=== PATIENT | female | born 1935 | race Caucasian/White ===

== ENCOUNTER 2020-09-18 16:56 | Emergency (ER) | payer OTHER, MEDICARE ==
[2020-09-18 17:29] VITALS: TEMP 98.4; BMI 30.1
[2020-09-18] MEDS ORDERED: BAMLANIVIMAB 700 MG in SODIUM CHLORIDE 180 ML IVPB ONE (19:04)
[2020-09-18 21:50] VITALS: BP 174/67; PULSE 62
== END 2020-09-18 22:28 | disposition home or self-care (01) ==
LOC: JER 16:56
PROC: 3E033NZ Introduction of Analgesics, Hypnotics, Sedatives into Peripheral Vein, Percutaneous Approach (ICD-10-PCS; principal; 2020-09-18)
DX: U07.1 COVID-19 (principal)
CPT/HCPCS: 99284-25; M0239; Q0239

== ENCOUNTER 2020-10-02 14:00 | Inpatient (IN) | payer OTHER, MEDICARE ==
[2020-10-02] MEDS ORDERED: DEXAMETHASONE SOD PHOSPHATE 4 MG/1 ML VIAL IVPUSH ONE (15:05)
[2020-10-02] MEDS ORDERED: ACETAMINOPHEN 1000 MG/100 ML VIAL (NON FORMULARY) IVPB ONE (15:05)
[2020-10-02 15:51] LABS: VENOUS BASE EXCESS -1.1 mmol/L (-2-2); VENOUS O2 SATURATION 55.7 % (70-80); VENOUS PCO2 33.2 mmHg (38-52); VENOUS PH 7.446 (7.310-7.410)
[2020-10-02] MEDS ORDERED: DEXAMETHASONE SOD PHOSPHATE 10 MG/1 ML VIAL ONE (15:59)
[2020-10-02] MEDS ORDERED: ACETAMINOPHEN INJECTION 100 ML IVPB ONE (15:59)
[2020-10-02 16:07] LABS: BASO % 0.2 % (0-2.0); EOS % 0.1 % (0-4.5); HEMATOCRIT 32.8 % (32.4-45.2); HEMOGLOBIN 10.8 GM/dL (10.7-15.3); LYMPH % 3.6 % (8-40); MCH 30.9 pg (25.7-33.7); MEAN CELL VOLUME 93.7 fl (80-96); MEAN PLT VOLUME 9.3 fl (7.5-11.1); MONO % 5.6 % (3.8-10.2); NEUT % 90.5 % (42.8-82.8); PLATELET COUNT 277 K/MM3 (134-434); RDW 13.7 % (11.6-15.6); WHITE BLOOD COUNT 11.8 K/mm3 (4.0-10.0)
[2020-10-02 16:14] LABS: INR 2.17 (0.83-1.09); PROTHROMBIN TIME (PATIENT) 26.1 SEC (9.7-13.0)
[2020-10-02 16:16] LABS: ACTIVATED PTT 32.1 SECONDS (25.2-36.5)
[2020-10-02 16:34] LABS: POTASSIUM 4.7 mmol/L (3.5-5.1)
[2020-10-02 16:36] LABS: ALBUMIN 2.5 g/dl (3.4-5.0); CALCIUM 8.4 mg/dL (8.5-10.1)
[2020-10-02 16:37] LABS: BLOOD UREA NITROGEN 28.4 mg/dL (7-18)
[2020-10-02 16:39] LABS: BILIRUBIN,DIRECT 0.3 mg/dL (0.0-0.2)
[2020-10-02 16:40] LABS: CREATININE 0.9 mg/dL (0.55-1.3)
[2020-10-02 16:41] LABS: TOT PROT 6.8 g/dl (6.4-8.2)
[2020-10-02] MEDS ORDERED: dilTIAZem HCL 125 MG/25 ML - 25 ML VIAL ONE (17:11)
[2020-10-02] MEDS ORDERED: dilTIAZem HCL 50 MG/10 ML - 10 ML VIAL IVPUSH ONE (17:53)
[2020-10-02] MEDS ORDERED: dilTIAZem HCL 30 MG TABLET PO ONE (18:14)
[2020-10-02] MEDS ORDERED: dilTIAZem HCL 30 MG TABLET ONE (18:23)
[2020-10-02] MEDS ORDERED: ACETAMINOPHEN 325 MG TABLET (FP) PO PRN (23:38)
[2020-10-02] MEDS ORDERED: AZITHROMYCIN IVPB 500 MG/250 ML BAG IVPB ONE (23:40)
[2020-10-03] MEDS ORDERED: AZITHROMYCIN IVPB 500 MG/250 ML BAG IVPB ONE (01:34)
[2020-10-03] MEDS ORDERED: APIXABAN 5 MG TABLET ONE (01:34)
[2020-10-03] MEDS: APIXABAN 5 MG TABLET PO SCH ×2 (01:37→10:51)
[2020-10-03] MEDS: FUROSEMIDE 20 MG TABLET (FP) PO SCH ×2 (06:25→14:50)
[2020-10-03] MEDS: METHIMAZOLE 10 MG TABLET (FP) PO SCH ×2 (06:25→14:50)
[2020-10-03 07:44] LABS: BASO % 0.3 % (0-2.0); HEMATOCRIT 30.4 % (32.4-45.2); HEMOGLOBIN 10.4 GM/dL (10.7-15.3); LYMPH % 3.9 % (8-40); MCH 31.8 pg (25.7-33.7); MCHC 34.2 g/dl (32.0-36.0); MEAN PLT VOLUME 9.2 fl (7.5-11.1); MONO % 2.9 % (3.8-10.2); NEUT % 92.9 % (42.8-82.8); PLATELET COUNT 278 K/MM3 (134-434); RBC 3.27 M/mm3 (3.60-5.2); RDW 13.7 % (11.6-15.6); WHITE BLOOD COUNT 11.1 K/mm3 (4.0-10.0)
[2020-10-03 08:10] LABS: POTASSIUM 5.3 mmol/L (3.5-5.1)
[2020-10-03 08:16] LABS: ALBUMIN 2.2 g/dl (3.4-5.0); BLOOD UREA NITROGEN 32.6 mg/dL (7-18); CALCIUM 8.4 mg/dL (8.5-10.1)
[2020-10-03 08:19] LABS: CREATININE 0.8 mg/dL (0.55-1.3)
[2020-10-03 08:20] LABS: BILIRUBIN,TOTAL 1.1 mg/dL (0.2-1); TOT PROT 6.3 g/dl (6.4-8.2)
[2020-10-03] MEDS: METOPROLOL TARTRATE 50 MG TABLET (FP) PO SCH ×2 (08:48→10:24)
[2020-10-03] MEDS ORDERED: DEXAMETHASONE SOD PHOSPHATE 4 MG/1 ML VIAL IVPUSH SCH ×2 (10:00)
[2020-10-03] MEDS ORDERED: CHOLECALCIFEROL (VIT D3) 1,000 UNIT (25 MCG) TABLET PO SCH (10:00)
[2020-10-03] MEDS ORDERED: POTASSIUM CHLORIDE TABS 10 MEQ TABLET.ER (FP) PO SCH (10:00)
[2020-10-03 10:33] LABS: ANISOCYTOSIS 0; HELMET CELLS 0; HOWELL-JOLLY BODIES 0; MACROCYTOSIS 0; OVALOCYTE 0; PLATELET ESTIMATE NORMAL; ROULEAU 0; SICKELED CELLS 0; TARGET CELLS 0; TEAR DROP CELLS 0; TOXIC GRANULATION 0
[2020-10-03] MEDS ORDERED: dilTIAZem HCL 25 MG/5 ML - 5 ML VIAL IVPUSH PRN (10:45)
[2020-10-03] MEDS: ASCORBIC ACID 500 MG TABLET (FP) PO SCH (10:51)
[2020-10-03] MEDS: ZINC SULFATE 220 MG CAPSULE (FP) PO SCH (10:52)
[2020-10-03] MEDS ORDERED: TOCILIZUMAB (ACTEMRA) 200 MG/10 ML VIAL IVPB ONE (11:35)
[2020-10-03] MEDS: dilTIAZem HCL 30 MG TABLET PO SCH ×2 (11:37→17:40)
[2020-10-03 12:06] LABS: MAGNESIUM 2.9 mg/dL (1.8-2.4)
[2020-10-03] MEDS ORDERED: SODIUM CHLORIDE IVPB ONE (12:15)
[2020-10-03] MEDS ORDERED: TOCILIZUMAB IVPB ONE (12:15)
[2020-10-03] MEDS ORDERED: REMDESIVIR 200 MG in SODIUM CHLORIDE 210 ML IVPB ONE (14:00)
[2020-10-03] MEDS: BUDESONIDE/FORMETEROL FUMARATE 160/4.5 mcg INHALER IH SCH (14:49)
[2020-10-03] MEDS ORDERED: MORPHINE SULFATE 2 MG/ML VIAL IM ONE (20:58)
[2020-10-03] MEDS ORDERED: MORPHINE SULFATE 2 MG/ML VIAL ONE (21:03)
[2020-10-03] MEDS ORDERED: FUROSEMIDE 40 MG/4 ML INJECTABLE VIAL IVPUSH ONE (22:27)
[2020-10-03] MEDS ORDERED: LORazepam 2 MG/ML SDV VIAL IVPUSH ONE (22:30)
[2020-10-04] MEDS: APIXABAN 5 MG TABLET PO SCH ×3 (01:13→21:03)
[2020-10-04] MEDS: METOPROLOL TARTRATE 50 MG TABLET (FP) PO SCH (01:13)
[2020-10-04] MEDS: ZINC SULFATE 220 MG CAPSULE (FP) PO SCH ×3 (01:14→21:04)
[2020-10-04] MEDS: BUDESONIDE/FORMETEROL FUMARATE 160/4.5 mcg INHALER IH SCH (01:14)
[2020-10-04] MEDS: METHIMAZOLE 10 MG TABLET (FP) PO SCH ×4 (01:18→21:04)
[2020-10-04] MEDS: dilTIAZem HCL 30 MG TABLET PO SCH ×2 (01:19→05:15)
[2020-10-04] MEDS ORDERED: NOREPINEPHRINE D5W PREMIX 16,000 MCG/500 ML BAG IVPB SCH (02:30)
[2020-10-04] MEDS: VASOPRESSIN 40 UNITS in SODIUM CHLORIDE 98 ML IVPB SCH (02:51)
[2020-10-04] MEDS: ASCORBIC ACID 500 MG TABLET (FP) PO SCH ×3 (02:52→21:04)
[2020-10-04] MEDS ORDERED: VASOPRESSIN 20 UNITS/ML VIAL IV ONE (03:22)
[2020-10-04 04:54] LABS: ALLENS TEST POSITIVE; ARTERIAL BLD GAS O2 SATURATION 88.7 mmHg (95-98); ARTERIAL BLOOD GAS BASE EXCESS -19.8 mmol/L (-2-2); ARTERIAL BLOOD GAS PO2 95.4 mmHg (80-100)
[2020-10-04 04:55] LABS: VENT MODE A/C; VENT RATE 22
[2020-10-04 04:58] LABS: ARTERIAL BLOOD GAS pH 6.849 (7.350-7.450)
[2020-10-04] MEDS ORDERED: CALCIUM GLUCONATE 10% - 1,000 MG/10 ML VIAL IVPUSH ONE ×2 (05:01→09:49)
[2020-10-04] MEDS ORDERED: PIPERACILLIN/TAZOB 4.5 GM 4.5 GM in DEXTROSE 5%-WATER 100 ML IVPB SCH ×2 (05:07→05:45)
[2020-10-04] MEDS: PHENYLEPHRINE NS PREMIX 50,000 MCG/500 ML BAG CVP SCH (05:14)
[2020-10-04] MEDS: FUROSEMIDE 20 MG TABLET (FP) PO SCH (05:15)
[2020-10-04] MEDS ORDERED: CALCIUM GLUCONATE 10% - 1,000 MG/10 ML VIAL ONE (05:34)
[2020-10-04] MEDS ORDERED: SODIUM BICARBONATE 8.4% 50 MEQ/50 ML DISP.SYRIN IVPUSH ONE ×4 (05:36→19:56)
[2020-10-04] MEDS ORDERED: DEXTROSE 50%-WATER - 25 GM/50 ML VIAL IVPUSH ONE ×4 (05:59→19:57)
[2020-10-04] MEDS ORDERED: DEXTROSE 50%-WATER 25 GM/50 ML DISP.SYRIN ONE ×3 (06:01→14:42)
[2020-10-04] MEDS ORDERED: INSULIN (NOVOLOG) ASPART 100 UNITS/ML 10ML VIAL ONE (06:02)
[2020-10-04] MEDS ORDERED: HYDROCORTISONE SOD SUCCINATE 100 MG/2 ML VIAL IVPUSH ONE (06:13)
[2020-10-04] MEDS ORDERED: VANCOMYCIN 1 GRAM (PRE-DOCKED) 1,000 MG/250 ML BAG IVPB ONE (06:15)
[2020-10-04 07:14] LABS: BASO % 0.1 % (0-2.0); EOS % 0.1 % (0-4.5); HEMOGLOBIN 9.8 GM/dL (10.7-15.3); LYMPH % 4.1 % (8-40); MCH 31.5 pg (25.7-33.7); MCHC 32.5 g/dl (32.0-36.0); MONO % 3.5 % (3.8-10.2); NEUT % 92.2 % (42.8-82.8); PLATELET COUNT 139 K/MM3 (134-434); RDW 14.1 % (11.6-15.6); WHITE BLOOD COUNT 17.4 K/mm3 (4.0-10.0)
[2020-10-04] MEDS ORDERED: VANCOMYCIN 1 GRAM (PRE-DOCKED) 1,000 MG/250 ML BAG IVPB SCH (07:45)
[2020-10-04] MEDS ORDERED: DEXTROSE 5%-WATER - 50 ML IVPB ONE ×2 (08:15→17:45)
[2020-10-04] MEDS ORDERED: PIPERACILLIN/TAZOBACTAM 3.375 GM VIAL IVPB ONE ×2 (08:15→17:45)
[2020-10-04 08:18] LABS: CHLORIDE 102 mmol/L (98-107); SODIUM 138 mmol/L (136-145)
[2020-10-04 08:31] LABS: CALCIUM 8.5 mg/dL (8.5-10.1)
[2020-10-04 08:31] LABS: ARTERIAL BLD GAS O2 SATURATION 91.8 mmHg (95-98); ARTERIAL BLOOD GAS BASE EXCESS -17.5 mmol/L (-2-2); ARTERIAL BLOOD GAS PO2 95.2 mmHg (80-100)
[2020-10-04 08:32] LABS: ALBUMIN 1.9 g/dl (3.4-5.0); BLOOD UREA NITROGEN 53.5 mg/dL (7-18); CO2 22 mmol/L (21-32); GLUCOSE,RANDOM 82 mg/dL (74-106)
[2020-10-04 08:32] LABS: ALLENS TEST POSITIVE; VENT MODE A/C; VENT RATE 28
[2020-10-04 08:34] LABS: ARTERIAL BLOOD GAS pH 6.965 (7.350-7.450)
[2020-10-04 08:35] LABS: BILIRUBIN,TOTAL 1.7 mg/dL (0.2-1); TOT PROT 5.5 g/dl (6.4-8.2)
[2020-10-04] MEDS ORDERED: ACETAMINOPHEN 325 MG TABLET (FP) PO PRN (08:35)
[2020-10-04] MEDS ORDERED: dilTIAZem HCL 25 MG/5 ML - 5 ML VIAL IVPUSH PRN (08:35)
[2020-10-04 08:36] LABS: CREATININE 2.4 mg/dL (0.55-1.3)
[2020-10-04 08:40] LABS: ALK PHOS 314 U/L (45-117); ANION GAP 14 MMOL/L (8-16); SGOT/AST 6374 U/L (15-37); SGPT/ALT 3395 U/L (13-61)
[2020-10-04 09:25] LABS: LDH > 4000 U/L (84-246)
[2020-10-04] MEDS: FENTANYL NS IVPB 500 MCG/100 ML BAG IVPB SCH (09:28)
[2020-10-04] MEDS: PIPERACILLIN/TAZOB 3.375 GM 3.375 GM in DEXTROSE 5%-WATER - 50 ML IVPB SCH ×2 (09:28→17:49)
[2020-10-04 09:29] LABS: POTASSIUM 7.5 mmol/L (3.5-5.1)
[2020-10-04] MEDS: DEXAMETHASONE SOD PHOSPHATE 4 MG/1 ML VIAL IVPUSH SCH (09:31)
[2020-10-04] MEDS: CHOLECALCIFEROL (VIT D3) 1,000 UNIT (25 MCG) TABLET PO SCH (09:36)
[2020-10-04] MEDS ORDERED: INSULIN REGULAR HUMAN 100 UNITS/ML *VIAL IVPUSH ONE ×3 (09:50→19:57)
[2020-10-04] MEDS ORDERED: SODIUM ZIRCONIUM CYCLOSILICATE (LOKELMA) 5 GM PACKET PO ONE (09:51)
[2020-10-04] MEDS ORDERED: LACTULOSE 20 GM/30 ML UDC (FOR ORAL USE ONLY) PO ONE (09:52)
[2020-10-04] MEDS ORDERED: SODIUM CHLORIDE 1,000 ML IV STA (09:55)
[2020-10-04] MEDS ORDERED: METOPROLOL TARTRATE 50 MG TABLET (FP) PO SCH (10:00)
[2020-10-04] MEDS ORDERED: VANCOMYCIN 1 GM in D5W (PRE-DOCKED) 1,000 MG/250 ML IVPB SCH (10:00)
[2020-10-04] MEDS ORDERED: POTASSIUM CHLORIDE TABS 20 MEQ TABLET.ER (FP) PO SCH (10:00)
[2020-10-04] MEDS ORDERED: BUDESONIDE/FORMETEROL FUMARATE 160/4.5 mcg INHALER IH SCH (10:00)
[2020-10-04 10:06] LABS: ANISOCYTOSIS 1+; MACROCYTOSIS 0; PLATELET ESTIMATE DECREASED
[2020-10-04] MEDS ORDERED: SODIUM BICARBONATE 8.4% 50 MEQ/50 ML VIAL ONE ×2 (10:40→14:42)
[2020-10-04 11:17] LABS: CALCIUM 8.3 mg/dL (8.5-10.1)
[2020-10-04 11:18] LABS: BLOOD UREA NITROGEN 56.6 mg/dL (7-18); MAGNESIUM 3.2 mg/dL (1.8-2.4)
[2020-10-04 11:21] LABS: CREATININE 2.3 mg/dL (0.55-1.3)
[2020-10-04 11:42] LABS: ARTERIAL BLD GAS O2 SATURATION 95.9 mmHg (95-98); ARTERIAL BLOOD GAS BASE EXCESS -10.1 mmol/L (-2-2); ARTERIAL BLOOD GAS PO2 110.8 mmHg (80-100)
[2020-10-04 11:47] LABS: VENT MODE A/C; VENT RATE 28
[2020-10-04] MEDS ORDERED: INSULIN REGULAR HUMAN 100 UNITS/ML *VIAL ONE (11:53)
[2020-10-04 11:58] LABS: PHOSPHOROUS 9.6 mg/dL (2.5-4.9); POTASSIUM 7.4 mmol/L (3.5-5.1)
[2020-10-04] MEDS ORDERED: dilTIAZem HCL 30 MG TABLET PO SCH (12:00)
[2020-10-04] MEDS: PANTOPRAZOLE SODIUM 40 MG VIAL IVPUSH SCH (12:15)
[2020-10-04 12:54] LABS: BLOOD UREA NITROGEN 55.9 mg/dL (7-18); CALCIUM 7.7 mg/dL (8.5-10.1)
[2020-10-04 12:55] LABS: ALBUMIN 1.6 g/dl (3.4-5.0)
[2020-10-04 12:57] LABS: CREATININE 2.6 mg/dL (0.55-1.3)
[2020-10-04 12:59] LABS: BILIRUBIN,TOTAL 2.3 mg/dL (0.2-1); TOT PROT 5.2 g/dl (6.4-8.2)
[2020-10-04] MEDS: INSULIN SLIDING SCALE (NOVOLOG) 1 VIAL SQ SCH ×2 (13:15→17:53)
[2020-10-04 13:25] LABS: POTASSIUM 6.7 mmol/L (3.5-5.1)
[2020-10-04 13:50] LABS: ARTERIAL BLD GAS O2 SATURATION 92.2 mmHg (95-98); ARTERIAL BLOOD GAS BASE EXCESS -14.7 mmol/L (-2-2); ARTERIAL BLOOD GAS PO2 86.9 mmHg (80-100)
[2020-10-04 13:53] LABS: VENT MODE A/C; VENT RATE 32
[2020-10-04 13:55] LABS: ARTERIAL BLOOD GAS pH 7.071 (7.350-7.450)
[2020-10-04] MEDS ORDERED: REMDESIVIR 100 MG in SODIUM CHLORIDE 230 ML IVPB SCH (14:00)
[2020-10-04] MEDS ORDERED: FUROSEMIDE 20 MG TABLET (FP) PO SCH (14:00)
[2020-10-04 15:17] VITALS: BMI 27.9
[2020-10-04] MEDS: SODIUM BICARBONATE 8.4% - 150 MEQ in DEXTROSE 5%-WATER - 950 ML IVPB SCH ×2 (17:30→21:04)
[2020-10-04] MEDS: MUPIROCIN 2% TOPICAL OINTMENT FOR DECOLONIZATION NS SCH ×2 (17:52→21:03)
[2020-10-04 18:14] LABS: ARTERIAL BLOOD GAS PO2 83.9 mmHg (80-100)
[2020-10-04 18:20] LABS: ARTERIAL BLOOD GAS pH 7.163 (7.350-7.450)
[2020-10-04] MEDS: NOREPINEPHRINE BITARTRATE 16,000 MCG in SODIUM CHLORIDE 484 ML IV SCH (18:41)
[2020-10-04 19:10] LABS: ALBUMIN 1.8 g/dl (3.4-5.0); BILIRUBIN,TOTAL 2.4 mg/dL (0.2-1); BLOOD UREA NITROGEN 60.2 mg/dL (7-18); CALCIUM 7.5 mg/dL (8.5-10.1); CREATININE 2.9 mg/dL (0.55-1.3); TOT PROT 5.5 g/dl (6.4-8.2)
[2020-10-04 19:13] LABS: PHOSPHOROUS 9.9 mg/dL (2.5-4.9); POTASSIUM 6.7 mmol/L (3.5-5.1)
[2020-10-04] MEDS ORDERED: CALCIUM CHLORIDE 1 GM/10 ML *DISP.SYRIN IVPUSH ONE (19:56)
[2020-10-04] MEDS ORDERED: LACTATED RINGERS SOLUTION 1000 ML INFUS.BAG IV ONE (19:59)
[2020-10-04] MEDS ORDERED: LACTATED RINGERS SOLUTION 1,000 ML/1,000 ML INFUS.BAG IV SCH (20:00)
[2020-10-04 21:19] LABS: ARTERIAL BLD GAS O2 SATURATION 94.3 mmHg (95-98); ARTERIAL BLOOD GAS BASE EXCESS -8.8 mmol/L (-2-2); ARTERIAL BLOOD GAS PO2 87.6 mmHg (80-100)
[2020-10-04 21:21] LABS: VENT MODE A/C; VENT RATE 32
[2020-10-04 21:22] LABS: ARTERIAL BLOOD GAS pH 7.186 (7.350-7.450)
[2020-10-04] MEDS: PROPOFOL 1,000,000 MCG/100 ML VIAL IVPB SCH (21:52)
[2020-10-04] MEDS ORDERED: CHLORHEXIDINE GLUCONATE 4% CLEANSER FOR DECOLONIZATION TP SCH (22:00)
[2020-10-04] MEDS ORDERED: ROCURONIUM BROMIDE 100 MG/10 ML VIAL ONE (23:05)
[2020-10-04] MEDS ORDERED: ROCURONIUM BROMIDE 50 MG/5 ML VIAL IV ONE (23:06)
[2020-10-05 00:15] LABS: ALBUMIN 1.6 g/dl (3.4-5.0); BLOOD UREA NITROGEN 63.9 mg/dL (7-18)
[2020-10-05 00:18] LABS: CREATININE 2.8 mg/dL (0.55-1.3)
[2020-10-05 00:20] LABS: TOT PROT 4.6 g/dl (6.4-8.2)
[2020-10-05] MEDS: INSULIN SLIDING SCALE (NOVOLOG) 1 VIAL SQ SCH ×3 (00:26→13:15)
[2020-10-05 00:54] LABS: POTASSIUM 6.1 mmol/L (3.5-5.1)
[2020-10-05] MEDS ORDERED: DEXTROSE 5%-WATER - 50 ML IVPB ONE ×2 (01:11→09:08)
[2020-10-05] MEDS ORDERED: PIPERACILLIN/TAZOBACTAM 3.375 GM VIAL IVPB ONE ×2 (01:11→09:07)
[2020-10-05] MEDS: PIPERACILLIN/TAZOB 3.375 GM 3.375 GM in DEXTROSE 5%-WATER - 50 ML IVPB SCH ×2 (01:12→09:44)
[2020-10-05] MEDS: NOREPINEPHRINE BITARTRATE 16,000 MCG in SODIUM CHLORIDE 484 ML IV SCH (02:00)
[2020-10-05] MEDS: FENTANYL NS IVPB 500 MCG/100 ML BAG IVPB SCH ×4 (02:00→15:00)
[2020-10-05] MEDS: VASOPRESSIN 40 UNITS in SODIUM CHLORIDE 98 ML IVPB SCH ×2 (03:23→04:00)
[2020-10-05] MEDS: PHENYLEPHRINE NS PREMIX 50,000 MCG/500 ML BAG CVP SCH (06:24)
[2020-10-05] MEDS: SODIUM BICARBONATE 8.4% - 150 MEQ in DEXTROSE 5%-WATER - 950 ML IVPB SCH (06:26)
[2020-10-05] MEDS: METHIMAZOLE 10 MG TABLET (FP) PO SCH ×2 (06:27→13:16)
[2020-10-05 06:43] LABS: BASO % 0.1 % (0-2.0); EOS % 0.3 % (0-4.5); HEMATOCRIT 25.8 % (32.4-45.2); HEMOGLOBIN 8.5 GM/dL (10.7-15.3); LYMPH % 2.1 % (8-40); MCH 31.3 pg (25.7-33.7); MEAN CELL VOLUME 94.6 fl (80-96); MEAN PLT VOLUME 9.6 fl (7.5-11.1); MONO % 2.5 % (3.8-10.2); PLATELET COUNT 67 K/MM3 (134-434); RBC 2.73 M/mm3 (3.60-5.2); RDW 13.8 % (11.6-15.6)
[2020-10-05 07:05] LABS: CHLORIDE 102 mmol/L (98-107); SODIUM 136 mmol/L (136-145)
[2020-10-05 07:07] LABS: ALBUMIN 1.8 g/dl (3.4-5.0); BLOOD UREA NITROGEN 65.8 mg/dL (7-18); CALCIUM 7.5 mg/dL (8.5-10.1); CO2 25 mmol/L (21-32); GLUCOSE,RANDOM 156 mg/dL (74-106)
[2020-10-05 07:08] LABS: MAGNESIUM 2.7 mg/dL (1.8-2.4)
[2020-10-05 07:10] LABS: CREATININE 2.9 mg/dL (0.55-1.3)
[2020-10-05 07:12] LABS: TOT PROT 4.9 g/dl (6.4-8.2)
[2020-10-05 07:13] LABS: ALK PHOS 305 U/L (45-117)
[2020-10-05] MEDS ORDERED: INSULIN (NOVOLOG) ASPART 100 UNITS/ML 10ML VIAL ONE (09:05)
[2020-10-05] MEDS: MUPIROCIN 2% TOPICAL OINTMENT FOR DECOLONIZATION NS SCH (09:40)
[2020-10-05 09:41] LABS: ANISOCYTOSIS 0; MACROCYTOSIS 0; PLATELET ESTIMATE DECREASED
[2020-10-05] MEDS: PANTOPRAZOLE SODIUM 40 MG VIAL IVPUSH SCH (09:42)
[2020-10-05] MEDS: DEXAMETHASONE SOD PHOSPHATE 4 MG/1 ML VIAL IVPUSH SCH (09:42)
[2020-10-05] MEDS: APIXABAN 5 MG TABLET PO SCH (09:42)
[2020-10-05] MEDS: ASCORBIC ACID 500 MG TABLET (FP) PO SCH (09:43)
[2020-10-05] MEDS: CHOLECALCIFEROL (VIT D3) 1,000 UNIT (25 MCG) TABLET PO SCH (09:43)
[2020-10-05] MEDS: ZINC SULFATE 220 MG CAPSULE (FP) PO SCH (09:43)
[2020-10-05] MEDS: PROPOFOL 1,000,000 MCG/100 ML VIAL IVPB SCH (09:45)
[2020-10-05 10:34] LABS: ARTERIAL BLD GAS O2 SATURATION 89.3 mmHg (95-98); ARTERIAL BLOOD GAS BASE EXCESS -8.6 mmol/L (-2-2); ARTERIAL BLOOD GAS PO2 63.4 mmHg (80-100); ARTERIAL BLOOD GAS pH 7.268 (7.350-7.450)
[2020-10-05 10:43] LABS: VENT MODE A/C; VENT RATE 32
[2020-10-05] MEDS ORDERED: SODIUM BICARBONATE 8.4% - 100 MEQ in DEXTROSE 5%-WATER - 1,000 ML IVPB SCH (10:57)
[2020-10-05] MEDS ORDERED: VANCOMYCIN 1 GRAM (PRE-DOCKED) 1,000 MG/250 ML BAG IVPB ONE (11:00)
[2020-10-05] MEDS ORDERED: LACTATED RINGERS SOLUTION 1,000 ML/1,000 ML INFUS.BAG IV SCH (12:15)
[2020-10-05 14:32] LABS: ANION GAP 10 MMOL/L (8-16); SGPT/ALT 7967 U/L (13-61)
[2020-10-05 15:06] LABS: SGOT/AST > 10000 U/L (15-37)
[2020-10-05 15:15] LABS: POTASSIUM 6.5 mmol/L (3.5-5.1)
[2020-10-05 15:23] VITALS: TEMP 96.7
[2020-10-05] MEDS ORDERED: INSULIN REGULAR HUMAN 100 UNITS/ML *VIAL IVPUSH ONE (15:35)
[2020-10-05] MEDS ORDERED: CALCIUM GLUCONATE 10% - 1,000 MG/10 ML VIAL IVPUSH ONE (15:39)
[2020-10-05] MEDS ORDERED: DEXTROSE 50%-WATER - 25 GM/50 ML VIAL IVPUSH ONE (15:40)
[2020-10-05 15:48] LABS: CALCIUM 7.2 mg/dL (8.5-10.1)
[2020-10-05 15:49] LABS: BLOOD UREA NITROGEN 69.7 mg/dL (7-18)
[2020-10-05 15:52] LABS: CREATININE 3.2 mg/dL (0.55-1.3)
[2020-10-05 15:54] LABS: POTASSIUM 6.6 mmol/L (3.5-5.1)
[2020-10-05] MEDS ORDERED: LORazepam 2 MG/ML SDV VIAL IVPUSH ONE (17:51)
[2020-10-05] MEDS ORDERED: MORPHINE SULFATE 2 MG/ML VIAL IVPUSH ONE (17:51)
[2020-10-05] MEDS ORDERED: PIPERACILLIN/TAZOB 2.25 GM 2.25 GM in DEXTROSE 5%-WATER - 50 ML IVPB SCH (18:00)
[2020-10-05] MEDS ORDERED: MORPHINE SULFATE/0.9% NACL/PF 100 MG/100 ML BAG IVPB SCH (18:00)
[2020-10-05] MEDS ORDERED: SODIUM CHLORIDE 1,000 ML IV STA (18:35)
[2020-10-05] MEDS ORDERED: FUROSEMIDE 40 MG/4 ML INJECTABLE VIAL IVPUSH ONE (18:36)
[2020-10-05] MEDS ORDERED: SODIUM BICARBONATE 8.4% 50 MEQ/50 ML DISP.SYRIN IVPUSH ONE (18:36)
[2020-10-05] MEDS ORDERED: SODIUM ZIRCONIUM CYCLOSILICATE (LOKELMA) 5 GM PACKET PO ONE (19:58)
[2020-10-06 02:14] VITALS: BP 82/45; PULSE 65
== END 2020-10-06 03:50 | disposition expired | DRG 871 ==
LOC: JER 14:00 → JERBED 20:22 → J4W 10-03 02:54 → JICU 10-04 01:25
PROVIDERS: ADMIT Internal Medicine; ATTEND Internal Medicine
PROC: 5A09357 Assistance with Respiratory Ventilation, Less than 24 Consecutive Hours, Continuous Positive Airway Pressure (ICD-10-PCS; principal; 2020-10-03)
PROC: 5A1945Z Respiratory Ventilation, 24-96 Consecutive Hours (ICD-10-PCS; 2020-10-04)
PROC: 0CHY7BZ Insertion of Airway into Mouth and Throat, Via Natural or Artificial Opening (ICD-10-PCS; 2020-10-04)
PROC: 06HM33Z Insertion of Infusion Device into Right Femoral Vein, Percutaneous Approach (ICD-10-PCS; 2020-10-04)
PROC: B54BZZA Ultrasonography of Right Lower Extremity Veins, Guidance (ICD-10-PCS; 2020-10-04)
PROC: 03HY32Z Insertion of Monitoring Device into Upper Artery, Percutaneous Approach (ICD-10-PCS; 2020-10-04)
PROC: 4A133B1 Monitoring of Arterial Pressure, Peripheral, Percutaneous Approach (ICD-10-PCS; 2020-10-04)
PROC: 4A133J1 Monitoring of Arterial Pulse, Peripheral, Percutaneous Approach (ICD-10-PCS; 2020-10-04)
PROC: 05HM33Z Insertion of Infusion Device into Right Internal Jugular Vein, Percutaneous Approach (ICD-10-PCS; 2020-10-05)
PROC: B543ZZA Ultrasonography of Right Jugular Veins, Guidance (ICD-10-PCS; 2020-10-05)
DX: A41.9 Sepsis, unspecified organism (principal); U07.1 COVID-19; J12.82 Pneumonia due to coronavirus disease 2019; J96.01 Acute respiratory failure with hypoxia; I21.4 Non-ST elevation (NSTEMI) myocardial infarction; R65.21 Severe sepsis with septic shock; I50.30 Unspecified diastolic (congestive) heart failure; E87.4 Mixed disorder of acid-base balance; N17.9 Acute kidney failure, unspecified; I11.0 Hypertensive heart disease with heart failure; E78.5 Hyperlipidemia, unspecified; E05.90 Thyrotoxicosis, unspecified without thyrotoxic crisis or storm; E03.9 Hypothyroidism, unspecified; R74.01 Elevation of levels of liver transaminase levels; I48.91 Unspecified atrial fibrillation; E87.5 Hyperkalemia; F41.9 Anxiety disorder, unspecified; D69.6 Thrombocytopenia, unspecified; Z90.710 Acquired absence of both cervix and uterus
CPT/HCPCS: 36415; 36600; 71045-TC-FY; 71275-TC; 76775-TC; 76856-TC; 80048; 80053; 82248; 82550; 82553; 82728; 82803; 82962; 83605; 83615; 83735; 84100; 84439; 84443; 84484; 85025; 85379; 85610; 85730; 86140; 86769; 87040; 87070; 87086; 87186; 87205; 87804; 93005; 93010; 94002; 94660; 99285-25; C9399; C9803; G0480; J0131; J3262; U0003